=== PATIENT | female | born 1975 | race Caucasian/White ===

== ENCOUNTER 2016-12-06 20:55 | Emergency (ER) | payer MEDICAID ==
[2016-12-06 21:29] VITALS: BP 135/100
== END 2016-12-07 00:05 | disposition home or self-care (01) ==
LOC: ED 20:55
DX: S61.411A Laceration without foreign body of right hand, initial encounter (principal); R03.0 Elevated blood-pressure reading, without diagnosis of hypertension; W25.XXXA Contact with sharp glass, initial encounter; Y93.89 Activity, other specified; Y92.89 Other specified places as the place of occurrence of the external cause; Y99.8 Other external cause status
CPT/HCPCS: 90715; J2001